=== PATIENT | female | born 1935 | race Caucasian/White ===

== ENCOUNTER 2019-10-18 01:25 | Inpatient (IN) ==
--- NOTE | 2019-10-17 11:26 | EKG Report ---
Test Performed on : 10/17/2019 11:15:30 AM Test Reason : PAT Blood Pressure : / mmHG Vent. Rate : 106 BPM Atrial Rate : 106 BPM P-R Int : 140 ms QRS Dur : 062 ms QT Int : 336 ms P-R-T Axes : 044 -36 041 degrees QTc Int : 446 ms Sinus tachycardia. 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
[2019-10-17 11:51] LABS: BASO# 0.03 X1000 (0.0-0.2); BASO% 0.3 % (0.0-0.8); EOS# 0.05 X1000 (0.0-0.7); EOS% 0.5 % (0.0-10.0); HEMATOCRIT 42.4 % (37.0-47.0); HEMOGLOBIN 13.3 g/dL (12.0-16.0); IMM GRAN# 0.04 X1000 (0.0-0.04); IMM GRAN% 0.4 % (0.0-0.5); LYMPH# 2.26 X1000 (1.2-3.4); LYMPH% 23.2 % (20.5-51.1); MCH 30.6 PG (27-31); MCHC 31.4 g/dL (33-37); MCV 97.7 FL (81-99); MONO# 0.53 X1000 (0.11-0.59); MONO% 5.4 % (1.7-9.3); MPV 9.1 FL (7.4-10.4); NEUT# 6.82 X1000 (1.4-6.5); NEUT% 70.2 % (42.2-75.2); PLT 293 X1000 (130-400); RBC 4.34 XMIL (4.2-5.4); WBC 9.73 X1000 (4.8-10.8)
[2019-10-17 11:57] LABS: INR 1.02; PROTIME 13.5 Seconds (11.0-16.0)
[2019-10-17 12:20] LABS: ALBUMIN 4.2 g/dL (3.5-5.0); CALCIUM 8.8 mg/dL (8.8-10.2); POTASSIUM 4.1 mmol/L (3.5-5.1)
[2019-10-17 12:45] LABS: HEMOGLOBIN A1C 5.3 % (4.8-6.0)
[2019-10-17 17:13] LABS: URINE SOURCE CLEAN CATCH
[2019-10-17 17:18] LABS: BILIRUBIN URINE NEGATIVE (NEGATIVE); BLOOD URINE NEGATIVE (NEGATIVE); COLOR YELLOW; GLUCOSE URINE NEGATIVE (NEGATIVE); KETONE URINE 10 mg/dL (NEGATIVE); LEUKOCYTES URINE NEGATIVE (NEGATIVE); NITRITE URINE NEGATIVE (NEGATIVE); PH URINE 6.5; PROTEIN URINE 30 mg/dL (NEGATIVE); SP GRAVITY URINE 1.018; TURBIDITY URINE CLEAR (CLEAR); UROBILINOGEN URINE NORMAL (NORMAL)
[2019-10-17 17:22] LABS: UR EPITHELIAL CELLS <10 /HPF (<10); URINE BACTERIA NEGATIVE /HPF; URINE RBC <10 /HPF (<10); URINE WBC <10 /HPF (<10)
[2019-10-17 17:32] LABS: URINE CASTS GRANULAR PRESENT; URINE CRYSTALS CA OXALATE PRESENT; URINE SMALL ROUND CELLS NONE SEEN; URINE YEAST NONE SEEN
[2019-10-18] MEDS ORDERED: VERSED ONE (06:16)
[2019-10-18] MEDS ORDERED: DIPRIVAN 1% ONE (06:17)
[2019-10-18] MEDS ORDERED: FENTANYL ONE (06:17)
[2019-10-18] MEDS ORDERED: REGLAN ONE (06:17)
[2019-10-18] MEDS ORDERED: PEPCID ONE (06:17)
[2019-10-18] MEDS ORDERED: COLACE ONE (06:17)
[2019-10-18] MEDS ORDERED: KEFZOL 1 GM/D5W 1 GM/50 ML IVPB ONE (06:18)
[2019-10-18] MEDS ORDERED: LR 1,000 ML ONE ×2 (06:18→10:23)
[2019-10-18] MEDS ORDERED: LYRICA ONE (06:18)
[2019-10-18] MEDS ORDERED: DURAMORPH ONE (07:24)
[2019-10-18] MEDS ORDERED: TORADOL ONE (07:24)
[2019-10-18] MEDS ORDERED: MARCAINE 0.25% PF ONE (07:24)
[2019-10-18] MEDS ORDERED: EXPAREL 1.3% ONE (07:25)
[2019-10-18] MEDS ORDERED: CYKLOKAPRON 1,000 MG/NS 1,000 MG/100 ML IVPB ONE (07:25)
[2019-10-18] MEDS ORDERED: NEOSPORIN G.U. IRRIGANT ONE (07:25)
[2019-10-18] MEDS ORDERED: SODIUM CHLORIDE 0.9% ONE (07:25)
[2019-10-18 08:27] LABS: URINE SOURCE CATH
[2019-10-18 08:37] LABS: BILIRUBIN URINE NEGATIVE (NEGATIVE); BLOOD URINE NEGATIVE (NEGATIVE); COLOR YELLOW; GLUCOSE URINE NEGATIVE (NEGATIVE); KETONE URINE NEGATIVE (NEGATIVE); LEUKOCYTES URINE NEGATIVE (NEGATIVE); NITRITE URINE NEGATIVE (NEGATIVE); PROTEIN URINE NEGATIVE (NEGATIVE); SP GRAVITY URINE 1.009; TURBIDITY URINE CLEAR (CLEAR); UROBILINOGEN URINE NORMAL (NORMAL)
[2019-10-18 08:39] LABS: UR EPITHELIAL CELLS <10 /HPF (<10); URINE BACTERIA NEGATIVE /HPF; URINE RBC <10 /HPF (<10); URINE WBC <10 /HPF (<10)
[2019-10-18] MEDS ORDERED: DECADRON ONE (08:47)
[2019-10-18] MEDS ORDERED: SODIUM CHLORIDE 0.9% 10 ML ONE (08:47)
[2019-10-18] MEDS ORDERED: NEO-SYNEPHRINE ONE (08:47)
[2019-10-18] MEDS ORDERED: ZOFRAN ONE (08:47)
[2019-10-18] MEDS ORDERED: NS 1,000 ML ONE (09:30)
[2019-10-18] MEDS ORDERED: ZOFRAN IV PRN (11:15)
[2019-10-18] MEDS ORDERED: ZOFRAN ODT PO PRN (11:15)
[2019-10-18] MEDS ORDERED: OXY IR PO PRN ×2 (11:15)
[2019-10-18] MEDS ORDERED: MORPHINE IV PRN ×3 (11:15)
[2019-10-18] MEDS ORDERED: CYKLOKAPRON 1,000 MG in NS 100 ML IV ONE (14:00)
[2019-10-18] MEDS: ULTRAM PO SCH ×2 (16:33→21:27)
[2019-10-18] MEDS: KEFZOL 1 GM/D5W 1 GM/50 ML IVPB IV SCH ×2 (16:33→23:57)
[2019-10-18] MEDS: TYLENOL PO SCH ×2 (16:33→21:27)
[2019-10-18] MEDS: NS 1,000 ML IV SCH ×2 (16:34→21:29)
[2019-10-18] MEDS ORDERED: FLU VACCINE IM ONE (16:36)
--- NOTE | 2019-10-18 16:41 | OPERATIVE NOTE ---
PROCEDURE DATE: 10/18/2019 PREOPERATIVE DIAGNOSIS: Degenerative joint disease, left hip. POSTOPERATIVE DIAGNOSIS: Degenerative joint disease left hip. PROCEDURE PERFORMED: Left anterior hip replacement. SURGEON: Ceci Mcfadden MD. MEETING MANAGER: Ruth Fletcher. Ms. Fletcher was necessary for proper retraction and manipulation during the case. ANESTHESIA: Spinal. COMPLICATION: None. PROCEDURE IN DETAIL: This 84-year-old female presents for a left anterior hip replacement. Risks, benefits, and no guarantees were discussed and she is willing to proceed. She was taken to the operating room and satisfactory anesthesia obtained. The patient was transferred to the Ing[place] table and the left hip prepped and draped in usual sterile fashion. A time-out was taken to confirm operative site, procedure, and patient. An anterior approach to the left hip was undertaken with an incision starting 1 cm distal and lateral to the anterior superior iliac spine and extended over the tensor fascia for roughly 10 cm. Dissection was carried down through the skin and the fascia of the tensor fascia. Blunt dissection along the inner membrane of the tensor fascia was taken down to the anterior hip capsule. A Cobra retractor was placed over the superior and inferior aspect of the femoral neck and a capsulotomy incision made to expose the joint. The C-arm was used to hari an AP pelvis prior to osteotomy at this point to determine leg length. A femoral neck osteotomy was then made and the femoral head removed. A small Cobra retractor was carefully placed directly on anterior acetabular bone to protect the anterior neurovascular structures. Sequential reaming was undertaken up to a 53 reamer. A DePuy [place] LACKEY coated 54 outer diameter cup was then impacted under fluoroscopic guidance into the acetabulum with secure press-fit fixation in roughly 45 degrees of abduction and 15 degrees of anteversion. The 25 length screw was placed in the 12 o'clock position of the cup for additional security. A 0 degree 36 mm inner diameter polyethylene bearing was then impacted in the cup. The bearing cup interface and cup bone interface was checked and noted to be stable. Afterwards, the traction was released off the leg and the leg externally rotated and extended using the Ingalls table to facilitate broaching of the proximal femur. Sequential broaching with an Actis broach was undertaken up to a size 6 stem. This had good axial and rotational stability. Standard neck geometry with a 1.5 head ball, neck length revealed good mu-ism of leg length and stability. The trial stem was removed and an Actis size 6 collared stem impacted in the proximal femur with secure axial and rotational stability. A 36 mm ceramic head ball with a 1.5 neck taper was impacted onto this and the hip reduced. Stability was assessed by flexing the hip and internally rotating it without any posterior instability and extending the hip in roughly 70 degrees of external rotation to the floor without any anterior instability. The C-arm was used to verify accurate component position as well as fit and fill and mu-ism of leg length. The wound was copiously irrigated with irrigant. The joint capsule was injected with Exparel for pain management. The wound was closed with a running V-Loc suture and the fascia of the tensor fascia. A Hemovac drain was placed underneath this for elimination of any hematoma. The subcutaneous was then closed with 2-0 Vicryl followed by 4 Monocryl with Prineo bandage over the skin. She was recovered from anesthesia and transferred to recovery room in stable condition. No intraoperative complications were noted. Instrument count, sponge count was correct at the time of closure. cc: Pradeep Mcfadden MD
[2019-10-18] MEDS ORDERED: PNEUMOVAX 23 IM ONE (16:45)
--- NOTE | 2019-10-18 20:03 | ORTHOPAEDICS PROGRESS NOTE ---
DATE: 10/18/2019 Ms. Rosales is seen status post total hip replacement. She is resting comfortably. She reports minimal pain. She is able to flex and extend the knee as well as the ankle. Dressing is clean and dry. She is hemodynamically stable. We will plan on mobilizing her and transferring to rehab toward the end of the week when a bed is available. cc: Pradeep Mcfadden MD
[2019-10-18] MEDS ORDERED: URSODIOL 250 MG PO SCH (21:00)
[2019-10-18] MEDS: PERIDEX MT SCH (21:27)
[2019-10-18] MEDS: COLACE PO SCH (21:29)
[2019-10-19] MEDS: ULTRAM PO SCH ×4 (03:00→21:03)
[2019-10-19] MEDS: TYLENOL PO SCH ×4 (03:00→21:03)
[2019-10-19 07:02] LABS: CALCIUM 7.5 mg/dL (8.8-10.2); CREATININE 0.9 mg/dL (0.5-0.9); POTASSIUM 4.1 mmol/L (3.5-5.1)
[2019-10-19 07:30] LABS: HEMATOCRIT 28.7 % (37.0-47.0); HEMOGLOBIN 8.9 g/dL (12.0-16.0)
[2019-10-19] MEDS: PERIDEX MT SCH ×2 (08:44→21:04)
[2019-10-19] MEDS: PEPCID PO SCH (08:45)
[2019-10-19] MEDS: MOBIC PO SCH (08:45)
[2019-10-19] MEDS: COLACE PO SCH ×2 (08:46→21:03)
[2019-10-19] MEDS: NON-FORMULARY MED PO SCH (08:47)
[2019-10-19] MEDS ORDERED: CYANOCOBALAMIN IM SCH (09:00)
[2019-10-19] MEDS ORDERED: URSODIOL PO SCH (09:00)
[2019-10-19] MEDS ORDERED: MOBIC PO SCH (09:00)
[2019-10-19] MEDS ORDERED: CYANOCOBALAMIN INJ SCH (09:00)
[2019-10-19] MEDS: ASPIRIN PO SCH (11:48)
--- NOTE | 2019-10-19 12:23 | ORTHOPAEDICS PROGRESS NOTE ---
DATE: 10/19/2019 Ms. Rosales is seen status post anterior hip replacement. At the present time, she is afebrile with stable vital signs. She is doing relatively well. She is slow to mobilize, just from a geriatric standpoint. We will plan on trying to mobilize her today with therapy. Will discontinue the lines. She will require inpatient rehab. I have asked the social media marketing analyst to see her for discharge planning for that. Will see her tomorrow for routine followup. cc: Pradeep Mcfadden MD
[2019-10-19] MEDS: NS 1,000 ML IV SCH (14:18)
[2019-10-20] MEDS: NON-FORMULARY MED PO SCH ×3 (00:51→20:50)
[2019-10-20] MEDS: ULTRAM PO SCH ×4 (03:00→20:47)
[2019-10-20 06:30] LABS: HEMATOCRIT 28.1 % (37.0-47.0); HEMOGLOBIN 8.8 g/dL (12.0-16.0)
[2019-10-20] MEDS: TYLENOL PO SCH ×4 (08:22→20:45)
--- NOTE | 2019-10-20 09:12 | Diag Imaging Result Doc PS360 ---
EXAM: CHEST-1 VIEW 10/20/2019 HISTORY: rehab TECHNIQUE: AP portable upright at 0857 COMMENT: There is platelike opacity over the left hemidiaphragm which is slightly worse than on 01/15/2013. Some of this may be due to fibrosis as there was some opacity at the time the previous study. IMPRESSION: Atelectasis and/or fibrosis left lower lobe. Electronically signed by Nahun Velásquez 10/20/2019 9:10 AM
[2019-10-20] MEDS: MOBIC PO SCH (09:21)
[2019-10-20] MEDS: PERIDEX MT SCH ×2 (09:21→20:44)
[2019-10-20] MEDS: COLACE PO SCH ×2 (09:21→20:45)
[2019-10-20] MEDS: PEPCID PO SCH (09:21)
[2019-10-20] MEDS: ASPIRIN PO SCH (09:24)
--- NOTE | 2019-10-20 15:54 | ORTHOPAEDICS PROGRESS NOTE ---
DATE: 10/20/2019 Ms. Rosales is seen today status post anterior hip replacement. She is gradually mobilizing. She still requires assistance for mobilization. Her incision looks clean and dry. There is some minor ecchymosis and bruising. There is no signs of DVT. She remains neurovascularly intact. We will plan on discharging her to a rehab facility tomorrow with bed availability. cc: Pradeep Mcfadden MD
[2019-10-20] MEDS: NS 1,000 ML IV SCH (16:42)
[2019-10-21] MEDS: TYLENOL PO SCH ×2 (02:10→11:09)
[2019-10-21] MEDS: ULTRAM PO SCH ×2 (02:10→11:09)
[2019-10-21 06:54] LABS: HEMATOCRIT 29.4 % (37.0-47.0); HEMOGLOBIN 9.2 g/dL (12.0-16.0)
[2019-10-21] MEDS: PEPCID PO SCH (11:09)
[2019-10-21] MEDS: MOBIC PO SCH (11:09)
[2019-10-21] MEDS: COLACE PO SCH (11:10)
[2019-10-21] MEDS: PERIDEX MT SCH (11:10)
[2019-10-21] MEDS: NON-FORMULARY MED PO SCH ×2 (11:10→11:11)
[2019-10-21] MEDS: ASPIRIN PO SCH (11:10)
--- NOTE | 2019-10-21 11:16 | DISCHARGE SUMMARY ---
ADMISSION DATE: 10/18/2019 DISCHARGE DATE: 10/22/2019 ADMITTING DIAGNOSIS: Degenerative joint disease, left hip. DISCHARGE DIAGNOSIS: Degenerative joint disease, left hip, status post left anterior hip replacement. PROCEDURE: On 10/18/2019, Dr. Mcfadden performed a left anterior hip replacement. HOSPITAL COURSE: Ms Rosales is an 84-year-old female who had been seeing Dr. Mcfadden in the office regarding this left hip. Conservative treatment was tried but failed. It was decided she would proceed with a left anterior hip arthroplasty. Risks, benefits, and no guarantees were discussed and she wished to proceed. She was taken to the operating room and satisfactory anesthesia was obtained. She tolerated the procedure well and was transferred to the recovery room. After satisfactory recovery, she was transferred to [address] [place] [address]. She has been recovering well. She has had a little bit of trouble mobilizing. She has worked with Physical Therapy. Her pain has been well controlled with medication. She was able to ambulate 150 feet with the gait belt and assistance from Physical Therapy. She has been using a front wheel walker. Her vital signs are 98.3 degrees temperature, 100 pulse, blood pressure 166/81, 94% on room air. Her pain this morning is a 3/10. She has voided and is tolerating food. At this time she is ready for discharge to the rehab facility. DISCHARGE MEDICATIONS: 1. Aspirin 325 mg p.o. daily x30 days. 2. Colace 100 mg p.o. b.i.d. 3. Pepcid 20 mg p.o. daily. 4. Mobic 15 mg p.o. daily. 5. [place] 5 mg p.o. every 4 to 6 hours as needed for pain. DISCHARGE DISPOSITION: Ms. Rosales is going to be discharged to [facility]. She will need assistance mobilizing and increasing her strength and endurance. She will get her oni out in 14 days. The incision needs to be cleaned with saline and kept dry. She can shower and let soap and water run over the incision. Again, she needs to make sure she dries that area off very well after the shower. She is not to take any tub baths. I discussed with her signs and symptoms of postoperative infection and when to call the office. She can be full weightbearing on this left side but will require assistance and a walker for the first 1st couple of weeks. We will send her to the rehab with [facility] for pain control. We will do aspirin for DVT prophylaxis. She will follow up with Dr. Mcfadden in the office in September 22 to days. If there are any questions, please call the office. Dictated by GIUSEPPE Dutta for Pradeep Mcfadden MD cc: GIUSEPPE Dutta MD
[2019-10-21 12:10] VITALS: BP 164/77
== END 2019-10-21 13:35 | DRG 470 ==
LOC: SURHOLD 01:25 → 4N 07:55
PROVIDERS: ADMIT Orthopaedic Surgery Adult Reconstructive Orthopaedic Surgery; ATTEND Orthopaedic Surgery Adult Reconstructive Orthopaedic Surgery